=== PATIENT | female | born 1990 | race Two or more races ===

== ENCOUNTER → 2019-09-04 | Outpatient (CLI) | payer OTHER ==
[~2019-09-04] MED LIST: ISOVUE-370 76% 100ML VIAL (Q9967) As Ordered ONE
--- NOTE | 2019-09-04 13:22 | REP ---
HYSTEROSALPINGOGRAPHY: Patient was referred for hysterosalpingogram. Referring clinician catheterized the cervix and injected contrast and I obtained fluoroscopic images. Uterine cavity opacifies well and appears normal in configuration with no definite contour abnormality or filling defect. There is free passage of contrast material through both nondilated fallopian tubes and there appears to be free intraperitoneal spillage bilaterally. IMPRESSION: Bilateral fallopian tube patency. Fluoroscopy time 0.8 minutes. Electronically Signed by Nilesh Johnson MD 09/04/2019 08:01 P
== END ==
LOC: M RADPRO 11:26
PROVIDERS: ATTEND Physical Therapist
DX: N97.9 Female infertility, unspecified (principal)
CPT/HCPCS: 58340; 74740; Q9967

== ENCOUNTER 2020-03-04 10:16 | Day surgery (SDC) | payer OTHER ==
[~2020-03-04] VITALS: Ht 165.1 cm; Wt 88.4 kg
[~2020-03-04 10:16] MED LIST changes: +ACETAMINOPHEN 650 MG SUPP PR ONE; -ISOVUE-370 76% 100ML VIAL (Q9967) As Ordered ONE; +LIDOCAINE 1% MDV 20ML VIAL SQ PRN; +LR 1,000 ML IV ONE; +MULTCAP PO
[2020-03-04 10:49] LABS: HEMATOCRIT 41.1 % (36.0-47.0); HEMOGLOBIN 13.9 g/dl (12.0-15.5); MEAN CORPUSCULAR HEMOGLOBIN 30.4 pg (27.0-33.0); MEAN CORPUSCULAR HGB CONC 33.8 g/dl (32.0-36.5); MEAN CORPUSCULAR VOLUME 89.9 fl (80.0-96.0); PLATELET COUNT, AUTOMATED 289 10^3/uL (150-450); RED BLOOD COUNT 4.57 10^6/uL (4.00-5.40); WHITE BLOOD COUNT 6.2 10^3/uL (4.0-10.0)
[2020-03-04 11:11] LABS: BLOOD UREA NITROGEN 9 MG/DL (7-18); CALCIUM LEVEL 9.1 MG/DL (8.5-10.1); CARBON DIOXIDE LEVEL 28 MEQ/L (21-32); CHLORIDE LEVEL 106 MEQ/L (98-107); CREATININE FOR GFR 0.67 MG/DL (0.55-1.30); GLOMERULAR FILTRATION RATE > 60.0 (>60); GLUCOSE, FASTING 83 MG/DL (70-100); HCG, SERUM QUALITATIVE NEGATIVE (NEGATIVE); POTASSIUM SERUM 4.4 MEQ/L (3.5-5.1); SODIUM LEVEL 139 MEQ/L (136-145)
[2020-03-04] MEDS ORDERED: LIDOCAINE 2% 100MG/5ML SDV (FOR ANES.) As Ordered ONE (11:46)
[2020-03-04] MEDS ORDERED: propofoL 200 MG/20 ML VIAL As Ordered ONE (11:46)
[2020-03-04] MEDS ORDERED: ROCURONIUM BROMIDE 50 MG/5 ML VIAL As Ordered ONE ×2 (11:46→14:11)
[2020-03-04] MEDS ORDERED: MIDAZOLAM INJ 2MG/2ML VIAL (J2250 PER 1MG) As Ordered ONE (11:47)
[2020-03-04] MEDS ORDERED: ONDANSETRON 4MG/2ML VIAL As Ordered ONE (11:47)
[2020-03-04] MEDS ORDERED: dexameTHASONE 4 MG/ML 1ML VIAL (J1100 PER 1MG) As Ordered ONE (11:47)
[2020-03-04] MEDS ORDERED: fentaNYL 100 MCG/2 ML INJECTION (J3010) As Ordered ONE (11:47)
[2020-03-04] MEDS ORDERED: KETOROLAC 60MG 2ML VIAL As Ordered ONE (11:49)
[2020-03-04] MEDS ORDERED: SUGAMMADEX SODIUM 500 MG/5 ML VIAL (BRIDION) As Ordered ONE (11:49)
[2020-03-04] MEDS ORDERED: ACETAMINOPHEN 650 MG SUPP As Ordered ONE (12:56)
[2020-03-04] MEDS ORDERED: METHYLENE BLUE 0.5% (5MG/ML) 10 ML AMP (PROVAYBLUE) As Ordered ONE (12:57)
[2020-03-04] MEDS ORDERED: BUPIVACAINE HCL 0.5% 10ML VIAL As Ordered ONE (12:57)
[2020-03-04] MEDS ORDERED: ACETAMINOPHEN 650 MG SUPP PR ONE (13:30)
[2020-03-04] MEDS ORDERED: ceFAZolin 2 GM/D5W 50 ML IV BAG (J0690 PER 500MG) As Ordered ONE (13:32)
[2020-03-04] MEDS ORDERED: METOCLOPRAMIDE INJ 10MG/2ML VIAL (J2765 PER 1) As Ordered ONE (14:25)
[2020-03-04] MEDS ORDERED: LR 1,000 ML IV SCH (15:00)
[2020-03-04] MEDS ORDERED: fentaNYL 100 MCG/2 ML INJECTION (J3010) IV PRN (15:00)
[2020-03-04] MEDS ORDERED: oxyCODONE 5MG TAB PO PRN (15:00)
[2020-03-04] MEDS ORDERED: HYDROMORPHONE HCL 0.5 MG/ 0.5 ML SYRINGE (J1170 PER 1) IV PRN (15:00)
[2020-03-04] MEDS ORDERED: ONDANSETRON 4MG/2ML VIAL IV PRN (15:00)
[2020-03-04 16:45] VITALS: BP 120/70
[2020-03-04] MEDS ORDERED: KETOROLAC 30 MG/ML 1ML VIAL IV PRN (21:00)
--- NOTE | 2020-03-21 15:12 | RO ---
DATE OF PROCEDURE: 03/04/2020 PREOPERATIVE DIAGNOSIS: Infertility. POSTOPERATIVE DIAGNOSIS: Infertility. OPERATION PROPOSED: Diagnostic laparoscopy, chromotubation of tubes, hysteroscopy, dilation and curettage (D and C). OPERATION PERFORMED: Diagnostic laparoscopy, chromotubation of tubes, hysteroscopy, dilation and curettage. ANESTHESIA: General plus local anesthetic for intraperitoneal procedures. ESTIMATED BLOOD LOSS: Less than 25 mL. SURGEON: Srinivas Shearer MD DESCRIPTION OF PROCEDURE: After adequate anesthesia, prepped and draped in the lithotomy position, Su catheter in the bladder draining clear urine, acetaminophen suppository 1300 mg per rectum, sequentials in place. Antibiotics were not required. Weighted speculum in the vagina, single-tooth tenaculum on the anterior lip of the cervix. The uterine manipulator later with dye was placed into the endocervical canal and into the uterine cavity. Then, reprepping and draping, small subumbilical incision was made. Veress needle was applied. 2.8 liters of CO2 at a flow rate of 14 to a pressure of 15. Direct entry into the abdomen. No evidence of perforation, hemorrhage, or bleeding. Panoramic review showed the right upper quadrant was normal. The right round ligament was normal. The right ovary was normal with the tube draped over the ovary and appeared to be adherent. There also appeared to be the very narrowing or stenotic area from the cornua for about 3 inches down to midsection of the tube. The fimbria itself appeared to be normal. The uterus was anteverted, anteflexed, was a bit mottled because there was retroversion previously. Anterior aspect of the bladder was good. Left round ligament was normal. Left tube appeared to have some inflammatory effect and some bulging out from the cornua distally. The fimbria itself appeared to be normal. The left ovary, as mentioned, was normal. The cul-de-sac, the uterosacrals were normal. No evidence of endometriosis or adhesions. The left upper quadrant was normal. With a 3-mm port on the right side, 3-mm port on the left side, under direct vision, we elevated the uterus, applied dye with significant force, and found that the stenotic area on the right side did not allow any dye to go through. However, on the left side, there was dye that went through, but at the fimbriated end appeared to be clubbed and held the dye so that no spill was noted. We tried several times with several different manipulators to try and push pressure through, none of which had worked. Despite the fact that she had had a hysterosalpingogram 6 months before, on visualization the tubes appeared to have been damaged both externally and internally by the chlamydial infection at age 18. With instrument and pad count correct, we then deflated to 4 mm of pressure, removed the two lateral ports, then the mainstem port, and subcuticular stitch to the umbilical area, and then subcuticular stitch in the other two. Marcaine 0.25% distributed 10 mL between three sites. Dermabond was placed, and the patient in a dressing, the hysteroscopy, the D and C, the instruments removed, the hysteroscope was introduced zero scope. Panoramic review showed normal intrauterine architecture but somewhat blunted off and obviously no evidence of stained dye going through on either end. This lady will probably do better with IVF with a fertilized egg from her . The other issue is that the semen analysis indicates slow motility. We are going to re-do the semen analysis again, which is now 6 months later; and with all instruments and counts correct, we had used 150 mL of normal saline out, 150 mL in. All instruments removed. Su catheter was removed, and the patient was sent to recovery in good condition.
== END 2020-03-04 16:59 | disposition home or self-care (01) ==
LOC: M SDC 10:16
PROVIDERS: ATTEND Obstetrics & Gynecology
DX: N80.3 Endometriosis of pelvic peritoneum (principal); N97.9 Female infertility, unspecified; G43.909 Migraine, unspecified, not intractable, without status migrainosus; Z87.891 Personal history of nicotine dependence
CPT/HCPCS: 36415; 58350; 58558; 58660; 80048; 84703; 85027; 88305; J0690; J1100; J1885; J2250; J2405; J2765; J3010; Q9968

== ENCOUNTER 2020-08-14 20:03 | Emergency (ER) | payer OTHER ==
[~2020-08-14] VITALS: Ht 167.6 cm; Wt 90.2 kg
[~2020-08-14 20:03] MED LIST changes: -ACETAMINOPHEN 650 MG SUPP PR ONE; -LIDOCAINE 1% MDV 20ML VIAL SQ PRN; -LR 1,000 ML IV ONE
[2020-08-14] MEDS ORDERED: PRENTAB9 PO (20:12)
[2020-08-14 21:08] LABS: BASO % 0.3 % (0.0-1.0); EOS % 0.3 % (0.0-3.0); HEMATOCRIT 37.7 % (36.0-47.0); HEMOGLOBIN 12.6 g/dl (12.0-15.5); LYMPH # 2.6 10^3/uL (1.5-5.0); LYMPH % 23.6 % (24.0-44.0); MEAN CORPUSCULAR HEMOGLOBIN 29.5 pg (27.0-33.0); MEAN CORPUSCULAR HGB CONC 33.4 g/dl (32.0-36.5); MEAN CORPUSCULAR VOLUME 88.3 fl (80.0-96.0); MONO # 0.6 10^3/uL (0.0-0.8); MONO % 5.4 % (0.0-5.0); NEUTROPHILS # 7.7 10^3/uL (1.5-8.5); NEUTROPHILS % 70.1 % (36.0-66.0); PLATELET COUNT, AUTOMATED 313 10^3/uL (150-450); RED BLOOD COUNT 4.27 10^6/uL (4.00-5.40)
[2020-08-14 21:36] LABS: ALBUMIN 3.4 GM/DL (3.2-5.2); ALT/SGPT 19 U/L (12-78); BILIRUBIN,DIRECT < 0.1 MG/DL (0.0-0.2); BILIRUBIN,TOTAL 0.3 MG/DL (0.2-1.0); BLOOD UREA NITROGEN 14 MG/DL (7-18); CALCIUM LEVEL 9.4 MG/DL (8.5-10.1); CARBON DIOXIDE LEVEL 27 MEQ/L (21-32); CHLORIDE LEVEL 107 MEQ/L (98-107); CREATININE FOR GFR 0.64 MG/DL (0.55-1.30); GLOMERULAR FILTRATION RATE > 60.0 (>60); GLUCOSE, FASTING 89 MG/DL (70-100); HCG, SERUM QUANTITATIVE 40694 MIU/ML; LIPASE 171 U/L (73-393); POTASSIUM SERUM 3.8 MEQ/L (3.5-5.1); SODIUM LEVEL 139 MEQ/L (136-145); TOTAL PROTEIN 7.4 GM/DL (6.4-8.2)
--- NOTE | 2020-08-14 22:05 | REPVR ---
PROCEDURE INFORMATION: Exam: US First Trimester, Transabdominal Exam date and time: 08/14/2020 9:50 PM Age: 29 years old Clinical indication: Pain; Other: Camping, no bleeding; Gestational age or lmp: 06/06/2020; ; Additional info: Pelvic cramping, poss miscarriage on US 2 days ago TECHNIQUE: Imaging protocol: Real-time transabdominal obstetrical ultrasound of the maternal pelvis and a first trimester , less than 14 weeks 0 days, with image documentation. COMPARISON: No relevant prior studies available. FINDINGS: Gestation: Gestational sac within the fundal endometrium which contains a pole and a yolk sac. Embryonic/ heart rate: No heartbeat is identified. Placenta: Unremarkable. No subchorionic bleed. Amniotic fluid: Amniotic fluid is normal for gestational age. BIOMETRY: [place]-Rump length: The crown-rump length measures 23 mm suggesting an age of 9 weeks 1 day. MATERNAL: Uterus: Unremarkable. Cervix: Unremarkable. Right adnexa: The right ovary measures 2.7 x 2.8 x 2.0 cm and demonstrates blood flow. Left adnexa: The left ovary measures 2.2 x 1.9 x 1.6 cm and demonstrates blood flow. Intraperitoneal space: No intraperitoneal free fluid. IMPRESSION: Findings consistent with failed or demise of a 9 week 1 day gestation. Electronically signed by: Martin Richards On 08/14/2020 22:05:41 PM
[2020-08-14 22:35] VITALS: BP 145/84
== END 2020-08-14 23:30 | disposition home or self-care (01) ==
LOC: M ED 20:03
DX: O02.1 Missed abortion (principal); Z79.899 Other long term (current) drug therapy

== ENCOUNTER → 2020-09-02 | Outpatient (CLI) | payer SELFPAY ==
[~2020-09-02] MED LIST changes: +PRENTAB9 PO
== END ==
LOC: M LABSMTC 13:38
PROVIDERS: ATTEND Pediatrics
DX: Z20.828 Contact with and (suspected) exposure to other viral communicable diseases (principal)

== ENCOUNTER 2021-05-25 08:11 | Emergency (ER) | payer OTHER, SELFPAY ==
[~2021-05-25] VITALS: Ht 167.6 cm; Wt 90.3 kg
--- NOTE | 2021-05-25 09:57 | REP ---
INDICATION: lower abdominal pain. COMPARISON: None. TECHNIQUE: Limited obstetric sonography. FINDINGS: Scanning through the gravid uterus demonstrates a viable single intrauterine gestation in a footling breech lie. motion is observed and heart rate is recorded at 156 beats per minute. A anterior placenta is seen, grade 0, without evidence of placenta previa. Closed cervical length is measured at 3.3 cm transabdominally. No extrauterine abnormality is observed. Amniotic fluid is subjectively normal. IMPRESSION: Limited Ob sonography. Viable single intrauterine gestation. No complication identified. Anterior placenta without evidence of previa. Normal closed cervix. <Electronically signed by Valdo Shay > 05/25/21 [id number]
[2021-05-25 10:07] LABS: BASO % 0.2 % (0.0-1.0); EOS % 0.4 % (0.0-3.0); HEMATOCRIT 35.5 % (36.0-47.0); HEMOGLOBIN 12.1 g/dl (12.0-15.5); LYMPH # 1.7 10^3/uL (1.5-5.0); LYMPH % 19.8 % (24.0-44.0); MEAN CORPUSCULAR HEMOGLOBIN 30.6 pg (27.0-33.0); MEAN CORPUSCULAR HGB CONC 34.1 g/dl (32.0-36.5); MEAN CORPUSCULAR VOLUME 89.9 fl (80.0-96.0); MONO # 0.5 10^3/uL (0.0-0.8); NEUTROPHILS # 6.2 10^3/uL (1.5-8.5); NEUTROPHILS % 73.2 % (36.0-66.0); PLATELET COUNT, AUTOMATED 251 10^3/uL (150-450); RED BLOOD COUNT 3.95 10^6/uL (4.00-5.40); WHITE BLOOD COUNT 8.4 10^3/uL (4.0-10.0)
[2021-05-25 10:51] LABS: ALBUMIN 2.8 GM/DL (3.2-5.2); ALT/SGPT 21 U/L (12-78); BILIRUBIN,DIRECT < 0.1 MG/DL (0.0-0.2); BILIRUBIN,TOTAL 0.3 MG/DL (0.2-1.0); HCG, SERUM QUANTITATIVE 6813 MIU/ML; LIPASE 82 U/L (73-393); TOTAL PROTEIN 6.6 GM/DL (6.4-8.2)
[2021-05-25 11:37] VITALS: BP 120/73
== END 2021-05-25 11:39 | disposition home or self-care (01) ==
LOC: M ED 08:11
DX: O26.892 Other specified pregnancy related conditions, second trimester (principal); R10.9 Unspecified abdominal pain; Z3A.16 16 weeks gestation of pregnancy; Z87.59 Personal history of other complications of pregnancy, childbirth and the puerperium

== ENCOUNTER → 2021-06-12 | Outpatient (CLI) | payer OTHER | LOC: M LABSMTC 10:13 | PROVIDERS: ATTEND Pediatrics | DX: Z20.822 Contact with and (suspected) exposure to COVID-19 (principal) | CPT/HCPCS: C9803; U0003 ==

== ENCOUNTER → 2021-06-21 | Outpatient (CLI) | payer OTHER ==
--- NOTE | 2021-06-21 13:45 | REP ---
INDICATION: PREG, ANATOMY. COMPARISON: None. TECHNIQUE: Transabdominal obstetric sonography. FINDINGS: Scanning through the gravid uterus demonstrates a viable single intrauterine gestation in transverse, head to the maternal left lie. motion is observed and heart rate is recorded at 149 beats per minute. A anterior placenta is seen, grade 0, without evidence of placenta previa. Closed cervical length is measured at 3.3 cm transabdominally. No extrauterine abnormality is observed. Amniotic fluid is subjectively normal. No anomaly is seen. The following anatomic structures are identified and felt to be sonographically unremarkable: cranium, choroid plexus, cavum, cerebellum and posterior fossa, face and profile, lungs, four-chamber heart with left and right ventricular outflow tract views, diaphragm, left-sided stomach, abdominal wall cord insertion, three-vessel umbilical cord, kidneys and bladder, spine, and upper and lower extremities. Biometry chart: BPD 5.2 cm, 21 weeks 4 days Head circumference 19.0 cm, 21 weeks 2 days Abdominal circumference 16.7 cm, 21 weeks 5 days Femur length 3.6 cm, 21 weeks 2 days Humeral length 3.6 cm, 22 weeks 2 days HC AC ratio normal 1.14 Cephalic index normal 0.76 Estimated weight 429 g, 0 lb 15 oz, 85th percentile for 20 weeks 5 days IMPRESSION: Viable single intrauterine gestation at 21 weeks 4 days by today's composite sonographic criteria. BETHANY by today's sonography October 28, 2021. No complication identified. <Electronically signed by Valdo Shay > 06/21/21 [id number]
== END ==
LOC: M RAD 12:24
PROVIDERS: ATTEND Advanced Practice Midwife
DX: Z34.82 Encounter for supervision of other normal pregnancy, second trimester (principal)

== ENCOUNTER → 2021-10-13 | Outpatient (REF) | LOC: M LABSMTC 11:11 | PROVIDERS: ATTEND Pediatrics | DX: Z20.822 Contact with and (suspected) exposure to COVID-19 (principal) ==

== ENCOUNTER 2021-10-29 21:28 | Outpatient (CLI) | payer OTHER ==
[~2021-10-29] VITALS: Ht 165.1 cm; Wt 100.7 kg
[2021-10-29 21:36] VITALS: BP 131/94
[2021-10-29 21:37] VITALS: BP 131/94
[2021-10-30] MEDS ORDERED: ENDO100S PV (11:01)
[2021-10-30] MEDS ORDERED: COLA100C5 PO (11:01)
== END 2021-10-29 22:50 | disposition home or self-care (01) ==
LOC: M LDO 21:28
PROVIDERS: ATTEND Obstetrics & Gynecology
DX: O36.8130 Decreased fetal movements, third trimester, not applicable or unspecified (principal); Z3A.39 39 weeks gestation of pregnancy
CPT/HCPCS: 59025; G0378; G0463

== ENCOUNTER 2021-10-30 10:25 | Inpatient (IN) | payer OTHER ==
[~2021-10-30] VITALS: Ht 165.1 cm; Wt 101.0 kg
[2021-10-30] VITALS (39 sets, daily range): BP systolic 93–145; BP diastolic 51–85
[2021-10-30] MEDS ORDERED: ENDO100S PV (11:01)
[2021-10-30] MEDS ORDERED: COLA100C5 PO (11:01)
[2021-10-30] MEDS ORDERED: HOME MED LIST COMPLETE! XX SCH (11:05)
[2021-10-30] MEDS ORDERED: LACTATED RINGER'S 1000 ML IV STA (11:23)
[2021-10-30] MEDS ORDERED: LIDOCAINE 1% MDV 20ML VIAL INFIL PRN (11:25)
[2021-10-30] MEDS ORDERED: OXYTOCIN DRIP 30 UNITS in IV 1 EA IV PRN (11:25)
[2021-10-30 12:15] LABS: HEMATOCRIT 37.8 % (36.0-47.0); HEMOGLOBIN 12.9 g/dl (12.0-15.5); MEAN CORPUSCULAR HEMOGLOBIN 29.9 pg (27.0-33.0); MEAN CORPUSCULAR HGB CONC 34.1 g/dl (32.0-36.5); MEAN CORPUSCULAR VOLUME 87.7 fl (80.0-96.0); PLATELET COUNT, AUTOMATED 235 10^3/uL (150-450); RED BLOOD COUNT 4.31 10^6/uL (4.00-5.40); WHITE BLOOD COUNT 11.7 10^3/uL (4.0-10.0)
[2021-10-30] MEDS ORDERED: FENTANYL 2MCG/ML ROPIVACAINE 0.2% IN 0.9% NACL 100ML IVBAG As Ordered ONE (12:40)
[2021-10-30] MEDS: LR 1,000 ML IV SCH ×2 (12:54→17:04)
[2021-10-30] MEDS ORDERED: ONDANSETRON 4MG/2ML VIAL IV PRN (14:00)
[2021-10-30] MEDS ORDERED: EPIDURAL COMMENT XX SCH (14:00)
[2021-10-30] MEDS ORDERED: REFRIGERATOR IV KEYS XX PRN (14:00)
[2021-10-30] MEDS ORDERED: LACTATED RINGER'S 1000 ML IV PRN (14:00)
[2021-10-30] MEDS ORDERED: ePHEDrine SULFATE 25 MG/5 ML(5MG/ML) SYRINGE IV PRN (14:00)
[2021-10-30] MEDS ORDERED: diphenhydrAMINE 50MG/ML VIAL (J1200) IV PRN (14:00)
[2021-10-30] MEDS ORDERED: NALOXONE INJ 0.4MG/1ML VIAL (J2310 PER 1MG) IV PRN (14:00)
[2021-10-30] MEDS ORDERED: EPIDURAL/PCA KEYS XX PRN (14:00)
[2021-10-30] MEDS: FENTANYL/ROPIVACAINE/NACL BAG 100 ML EPIDURAL SCH ×2 (14:03→21:47)
[2021-10-30] MEDS ORDERED: OXYTOCIN DRIP 30 UNITS in IV 1 EA IV SCH (18:35)
[2021-10-30] MEDS ORDERED: LR 1,000 ML IV SCH (18:35)
[2021-10-31] VITALS (11 sets, daily range): BP systolic 102–132; BP diastolic 55–72
[2021-10-31 00:20] LABS: CORD GAS ABE V -4.6; CORD GAS HCO3 V 20.7 MEQ/L; CORD GAS O2 SAT V 89.4 %; CORD GAS PCO2 V 39.3 mmHg; CORD GAS PH V 7.34 UNITS; CORD GAS PO2 V 44.8 mmHg; CORD GAS SBC V 20.5 MEQ/L; CORD GAS TCO2 V 21.9 MEQ/L
[2021-10-31 00:21] LABS: CORD GAS ABE A -8.8; CORD GAS HCO3 A 17.7 MEQ/L; CORD GAS O2 SAT A 95.1 %; CORD GAS PCO2 A 40.1 mmHg; CORD GAS PH A 7.263 UNITS; CORD GAS PO2 A 64.1 mmHg; CORD GAS SBC A 17.5 MEQ/L; CORD GAS TCO2 A 18.9 MEQ/L
[2021-10-31] MEDS ORDERED: ACETAMINOPHEN TAB 650MG DOSE (2X325MG) PO PRN (01:25)
[2021-10-31] MEDS ORDERED: METHYLERGONOVINE MALEATE 0.2 MG TAB PO PRN (01:25)
[2021-10-31] MEDS ORDERED: DIBUCAINE 1% OINTMENT 30GM TOP PRN (01:25)
[2021-10-31] MEDS ORDERED: DOCUSATE SODIUM 100MG CAPSULE PO PRN (01:25)
[2021-10-31] MEDS ORDERED: OXYTOCIN DRIP 30 UNITS in IV 1 EA IV SCH (01:25)
[2021-10-31] MEDS ORDERED: MEASLES,MUMPS,RUBELLA VACCINE INJ (MMR-II) (90707) SC SCH (01:25)
[2021-10-31] MEDS ORDERED: RHOGAM 300 MCG (1500 IU) INJ (J2790) IM SCH (01:25)
[2021-10-31] MEDS: IBUPROFEN 800 MG TAB PO PRN ×2 (05:33→18:38)
[2021-10-31] MEDS: PRENATAL VITAMINS CHEWABLE TABLET PO SCH (08:33)
[2021-11-01 05:09] VITALS: BP 110/72
[2021-11-01] MEDS ORDERED: PRENCHW PO (08:50)
[2021-11-01] MEDS ORDERED: COLA100C5 PO (08:50)
[2021-11-01] MEDS ORDERED: IBUP80TA PO (08:50)
[2021-11-01] MEDS: PRENATAL VITAMINS CHEWABLE TABLET PO SCH (10:54)
== END 2021-11-01 18:35 | disposition home or self-care (01) | DRG 807 ==
LOC: M LDO 10:25 → M LDI 11:15 → M OBS 10-31 02:27
PROVIDERS: ADMIT Registered Nurse; ATTEND Registered Nurse
PROC: 10E0XZZ Delivery of Products of Conception, External Approach (ICD-10-PCS; principal; 2021-10-30)
PROC: 0W8NXZZ Division of Female Perineum, External Approach (ICD-10-PCS; 2021-10-30)
DX: O80 Encounter for full-term uncomplicated delivery (principal); Z37.0 Single live birth; Z3A.39 39 weeks gestation of pregnancy